=== PATIENT | male | born 1945 | race Caucasian/White ===

== ENCOUNTER 2019-04-14 23:31 | Emergency (ER) | payer MEDICARE, SELFPAY ==
[2019-04-14 23:32] VITALS: BP 136/86; PULSE 79; RESP 20; TEMP 36.8; O2SAT 96; BMI 28.3
--- NOTE | 2019-04-14 23:52 | ED.VIS.GEN ---
History of Present Illness Chief Complaint: Back Informant: Patient Narrative: She stated he frequently has problems with his left lower back. Some muscle area. He had some long trips here recently and it seems to flared up as he sitting in the car. He saw his family doctor 2 weeks ago was placed on prednisone for 5 days as well as muscle relaxant. The muscle relaxant he did not like the way it made him feel. Prednisone did nothing for his muscles. He is not having radicular symptoms. He is been having this on and off for a year. No injury. Current severity is moderate. Worse with movement. It is pinpoint left lower. Past Medical History - Allergies and Home Meds Allergies/Adverse Reactions: Allergies Sulfa (Sulfonamide Antibiotics) Allergy (Verified 04/14/19 23:32) Unknown Primary Care Physician: Beck Ace MD [Primary Care Provider] - Prior records reviewed: Yes Past Medical History: - - Reviewed Surgical History: - - Reviewed Smoking Status: Never smoker Alcohol: None Drugs: None Review of Systems General: Denies: Chills, Fever, Sweats Eyes: Denies: Visual changes - bilaterally, Diplopia ENT: Denies: Rhinorrhea, Sore throat Cardiovascular: Denies: Chest pain, Palpitations Respiratory: Denies: Dyspnea, Cough, Dyspnea on exertion Gastrointestinal: Denies: Abdominal pain, Nausea, Vomiting, Diarrhea, Melena, Hematochezia Genitourinary: Denies: Dysuria, Hematuria, Frequency Musculoskeletal: Reports: Back pain. Denies: Extremity Pain Skin: Denies: Rash, Wounds Neurological: Denies: Headache, Weakness, Numbness Physical Exam Vital Signs/Narrative: Vital Signs Temp Pulse Resp BP Pulse Ox 04/14/19 23:32 98.2 F 79 20 H 136/86 H 96 General: Well nourished, Well developed, No Acute Distress Head: Normocephalic, Atraumatic Eyes: Perrl, EOMI ENT: Moist mucous membranes, No rhinorrhea Neck: Supple, Nontender Cardiovascular: Regular rate, Regular rhythm, No murmurs Respiratory: No distress, CTA bilaterally, Chest nontender Abdomen: Soft, Nontender, Nondistended, Normal bowel sounds Back: Normal Inspection, - - Pinpoint left lower lateral back pain in the erector muscles. No swelling or deformity. Decreased range of motion secondary to pain. Negative for: Nontender Extremities: Nontender, No edema Skin: Normal color, No rash Neurological: Alert, Oriented x3, Cranial nerves II-XII grossly intact, Normal Strength, Normal Sensation Psychological: Normal affect, Normal Mood Diagnostic/Tx/Re-eval - Medical Decision Making I feel the patient has a back strain. He is using no significant pain medicine at this time. He will use Tylenol. Given a short prescription for Percocet. He will use MiraLAX [id number] as he could get constipated. I do not feel he needs imaging studies. This is very pinpoint reproducible left lower back pain patient given a shot of morphine to help with relief tonight ED Disposition - Plan for ED Patient: Disposition: Home or Assisted Living Diagnosis: Low back pain Instructions: BACK PAIN (Acute or Chronic) Prescriptions: Oxycodone HCl/Acetaminophen [Percocet 5/325] 1 - 2 tab PO Q6H PRN PRN 3 Days #12 tab PRN Reason: Pain Prescription Printed Referrals: Beck Ace MD [Primary Care Provider] -
[2019-04-14 23:58] VITALS: BP 158/88; PULSE 73; RESP 17; O2SAT 96
[2019-04-15 00:05] VITALS: BP 144/80; PULSE 72; RESP 16; O2SAT 96
[2019-04-15] MEDS: Morphine 4 MG/ML Syringe IM (00:06)
== END 2019-04-15 00:05 | disposition home or self-care (01) ==
PROVIDERS: Emergency Provider Emergency Medicine; Family Provider Family Medicine; PCP Family Medicine
DX: M54.5 Low back pain (principal)
CPT/HCPCS: 96372; 99283

== ENCOUNTER 2021-02-12 10:13 | Emergency (ER) | payer MEDICARE, SELFPAY ==
[2021-02-12 10:14] VITALS: BP 156/107; PULSE 85; RESP 18; TEMP 36.6; O2SAT 99; BMI 28.7
--- NOTE | 2021-02-12 10:33 | RAD_ITS ---
STUDY: X-RAY - PELVIS AND RIGHT HIP REASON FOR EXAM: Male, 75 years old. Pain TECHNIQUE: 2 views of the pelvis and hip. COMPARISON: None. FINDINGS: There is a non-specific bowel gas pattern. There are multiple calcified phleboliths. Normal bilateral iliac wings, sacroiliac joints and visualized sacrum. Normal bilateral superior and inferior pubic rami. Normal pubic symphysis. Normal bilateral ischial tuberosities. Normal visualized femoral head. 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 There is moderate articular joint space narrowing of the hip. RAD/HIP, UNI W/ Pelvis 2-3 Views IMPRESSION: Moderate degree of joint space narrowing involving both hip joints. Electronically Signed: Kenyon Howell MD at 11:12 EDT , Service support ,
--- NOTE | 2021-02-12 10:34 | EDS_ITS ---
HPI History of Present Illness Chief Complaint: Lower Extremity Injury Detail of Chief Complaint: Right hip pain x8 days Informant: patient Onset/Context/Timing Current Severity: Mild Maximum Severity: Severe Narrative Narrative: Patient presents to the emergency department complaining of right hip pain. When I ask him where the pain is exactly however he pain to his right low back. Patient states that at times the pain seems to kind radiate into his right thigh and he just gets a odd sensation in his right leg. Patient gives history of mulching 8 days ago and then using a new riding mower that he had gotten. The following day he walked a couple of miles and then started having discomfort. Patient felt like he might be doing significantly better yesterday as he did not need any pain medication however this morning the pain became severe again. He denies any numbness or tingling in extremities. He denies weakness in extremities. He denies change in bowel or bladder function. He is not had issues like this before. Patient states that certain positions make the pain worse especially with standing and turning. Prior similar symptoms: No PFSH PFSH Medical History (Updated 02/12/21 @ 11:52 by Vania Grady) BPH (benign prostatic hyperplasia) GERD (gastroesophageal reflux disease) Hypertension Kidney stones Osteoporosis Home Medications cyclobenzaprine 10 mg PO TID PRN #20 tablet 02/12/21 [Rx Last Taken Unknown] hydrocodone-acetaminophen 1 tab PO Q4H PRN PRN 2 Days #10 tablet 02/12/21 [Rx Last Taken Unknown] methylprednisolone [Medrol (Massimo)] 4 mg PO .qd #21 tab 02/12/21 [Rx Last Taken Unknown] Allergy/AdvReac Type Severity Reaction Status Date / Time Sulfa (Sulfonamide Allergy Unknown Verified 02/12/21 10:16 Antibiotics) Surgical History (Updated 02/12/21 @ 11:52 by Vania Grady) History of inguinal hernia repair, bilateral Social History Smoking Status: Never smoker ROS ROS ED Constitutional Constitutional ED: Reports systems reviewed and no addt'l complaints, except as documented; Denies body ache(s), change in weight or chills Eyes Eyes: Denies acute decrease in peripheral vision, change in vision, double vision or loss of vision ENT ENT ED: Reports none; Denies ear pain, lip swelling, loss taste/smell, neck pain, otalgia or sore throat Cardiovascular Cardiovascular: Reports none; Denies abdominal pain, chest pain with activity, leg edema, lightheadedness, palpitations, rapid heart rate or syncope Respiratory/Chest Respiratory/Chest: Reports none; Denies change in mental status, dry cough, dyspnea, hemoptysis, shortness of breath at rest or shortness of breath with exertion Gastrointestinal Gastrointestinal: Reports none; Denies abdominal pain, change in stool character, diarrhea, hematemesis, hematochezia, melena, rectal bleeding or vomiting Genitourinary Genitourinary ED: Reports none; Denies abdominal discomfort, anuria, dysuria, genital pain or polyuria Musculoskeletal Musculoskeletal: Reports none, back pain and other Details: Right hip pain ; Denies arthralgias, difficulty walking, extremity pain, muscle weakness or myalgias Integumentary Reports none; Denies abscess or rash Neurologic Neurologic: Reports none; Denies abnormal gait, confusion, focal weakness, frequent falls, headache(s), loss of vision, numbness, paresthesias, radicular pain, vertigo or weakness Psychiatric Psychiatric: Reports systems reviewed and no addt'l complaints, except as documented and none; Denies behavioral changes, confusion, difficulty concentrating, hallucinations, suicidal ideation, tactile hallucinations or visual hallucinations Endocrine Endocrinology: Denies none, cold intolerance, excessive sweating, fatigue or heat intolerance Hematologic/Lymphatic Hematologic/Lymphatic: Reports none; Denies anemia, easy bleeding or easy bruisi ng Allergic/Immunologic Allergic/Immunologic ED: Denies as per HPI, none, lip swelling, mouth swelling, throat swelling, tongue swelling or hives EXAM Physical Exam Const Vital Signs: 02/12/21 10:14 Temperature 97.9 F Temperature Source Temporal Pulse Rate 85 Respiratory Rate 18 Blood Pressure 156/107 H Blood Pressure Mean 123 Pulse Ox 99 Oxygen Delivery Method Room Air Positive well nourished and well developed General Appearance ED: well developed and NAD HEENT Reports TM's clear and moist mucous membranes normocephalic and atraumatic; Negative for trauma or tenderness Tympanic Membrane ED: Yes TM's clear Eyes PERRL and EOMs intact bilaterally General Eye ED: Negative for pale conjunctiva or scleral icterus Neck no lymphadenopathy, supple and no JVD General: Negative for tenderness Chest Wall inspection of chest normal and palpation of chest normal Chest: Negative for tenderness Resp normal respiratory effort and clear to auscultation bilaterally Effort and Inspection: Negative for respiratory distress or pain with movement Auscultation: Negative for rhonchi, wheezes or diminished lung sounds Cardio regular rate, regular rhythm, S1 normal heart sound, S2 normal heart sound and no murmurs Peripheral Pulses: pulses 2+ throughout GI normal to inspection, nondistended, normoactive bowel sounds, soft to palpation, non-tender, non-distended and no masses Back/Spine no CVA tenderness and no thoracic nor lumbar tenderness Back/Spine Narrative: I am unable to reproduce patient's pain with palpation of his back. He has negative straight leg raises. Deep tendon reflexes are plus 2 out of 4 bilaterally at the patella and Achilles. Patient has normal 5 extension. Normal sensation to light touch. Cervical Spine: Negative for cervical spine tenderness Thoracic Spine / Upper Back: Negative for thoracic spinal tenderness or paraspinal muscle tenderness Lumbar Spine / Lower Back: Negative for lumbar spinal tenderness Extremity normal to inspection General Extremety ED: Negative for edema General Extremity: Negative for edema Neuro oriented x3, CN's II-XII intact bilaterally, no sensory deficits noted and gait normal Sensorium / Orientation: awake, alert, oriented to person, oriented to place and oriented to time Motor Exam: strength 5/5 throughout and strength abnormal Psych mental status grossly normal Skin no rashes or lesions noted and no wounds MDM MDM MDM Narrative Medical decision making narrative: I suspect patient's pain may be more a lumbar radiculopathy/sciatica rather than a hip issue. Patient will be started on a Medrol Dosepak and given a prescription for Flexeril and [place] for pain. He is advised to follow-up with his primary care physician within next 5 to 7 days. Radiography Diagnostic Testing: Radiology Impression Hip/Pelvis X-Ray 02/12/21 10:33 IMPRESSION: Moderate degree of joint space narrowing involving both hip joints. Electronically Signed: Kenyon Howell MD at 11:12 EDT , Service support , X-rays 2 views obtained of right hip and pelvis interpreted by myself as no acute fractures. Radiology felt there was a moderate degree of joint space narrowing involving both hip joints. Discharge Plan Triage Chief Complaint: Lower Extremity Injury ED Provider: Charisma Sanderson Dx/Rx/DC Orders Clinical Impression: Sciatica Instructions: ED Sciatica Prescriptions: New cyclobenzaprine [cyclobenzaprine] 10 MG tablet 10 mg PO TID PRN (Reason: Muscle Spasm) Qty: 20 RF: 0 hydrocodone-acetaminophen [hydrocodone-acetaminophen] 1 TABLET tablet 1 tab PO Q4H PRN PRN (Reason: Pain) 2 Days Qty: 10 RF: 0 methylprednisolone [Medrol (Massimo)] 4 mg tablets,dose pack 4 mg PO .qd Qty: 21 RF: 0 Primary Care Provider: Beck Ace Referrals: Beck Ace MD [Primary Care Provider] - 5-7 Days Disposition Disposition: Home, self care
== END 2021-02-12 12:00 | disposition home or self-care (01) ==
PROVIDERS: Emergency Provider Emergency Medicine; PCP Family Medicine
DX: M54.30 Sciatica, unspecified side (principal)
CPT/HCPCS: 73502; 99282